=== PATIENT | female | born 1935 | race Caucasian/White ===

== ENCOUNTER → 2016-07-29 | Outpatient (CLI) | payer MEDICARE | LOC: GMAL 10:32 | PROVIDERS: ATTEND Family Medicine | DX: D51.3 Other dietary vitamin B12 deficiency anemia (principal); E55.9 Vitamin D deficiency, unspecified ==

== ENCOUNTER → 2016-09-15 | Outpatient (CLI) | payer MEDICARE ==
--- NOTE | 2016-09-15 14:17 | MAM ---
History: Well woman exam. Date of exam: 09/15/2016 Services provided: Bilateral full field digital screening mammography. CAD, the images were reviewed with R2 computer aided detection. FINDINGS: Glandular tissue is scattered glandular contour. Comparison with 2014 exam. Glandular distribution is stable and unchanged. No dominant mass, architectural distortion or clustered microcalcification. IMPRESSION: Benign exam Recommendation: Routine annual mammography BIRAD CATEGORY: 2 BENIGN Electronically signed by: Tiana Stallings MD 09/15/2016 2:17 PM CDT Workstation: [id number]
--- NOTE | 2016-09-17 09:21 | MRI ---
MRI right knee without contrast INDICATION: Chronic knee pain osteoarthrosis pain radiating down the leg x1 week unable to weight-bear TECHNIQUE: Noncontrast MR imaging right knee standard protocol FINDINGS: Moderate joint effusion. Advanced patellofemoral chondrosis and developing osteoarthrosis with multifocal fairly diffuse grade 4 chondrosis medial greater than lateral patellofemoral compartments with subchondral cysts and edema. Focal grade 4 chondrosis region noted in the lateral patellar facet approximately 5 mm wide. Diffuse involvement in the medial patellofemoral compartment with joint line osteophytes and joint space narrowing. There is also severe [id number] osteoarthrosis in the medial tibiofemoral compartment with subchondral cysts edema and diffuse grade 4 chondrosis. There is a degenerative macerated tear of the medial meniscus especially posterior horn. Cruciate ligaments appear intact. Extensor tendons are intact. There is a small fragmented osteophyte or body along the lower pole patella as well. Mild degenerative signal lateral meniscus. There is bowing of the MCL but no disruption with extrusion of the medial meniscus related to the arthrosis. IMPRESSION: Severe osteoarthrosis right knee medial tibiofemoral compartment and patellofemoral joint Degenerative diffuse medial meniscal tear with extrusion No acute fracture Electronically signed by: Blake Esparza MD 09/17/2016 9:20 AM CDT
== END ==
LOC: MRI 08:39
PROVIDERS: ATTEND Family Medicine
DX: Z12.31 Encounter for screening mammogram for malignant neoplasm of breast (principal); M17.11 Unilateral primary osteoarthritis, right knee; M25.561 Pain in right knee
CPT/HCPCS: 73721; G0202

== ENCOUNTER → 2016-09-20 | Outpatient (CLI) | payer MEDICARE ==
--- NOTE | 2016-09-20 08:43 | RAD ---
EXAM DESCRIPTION: Pelvis right knee examination 4 views CLINICAL HISTORY: 81 years Female, HIP PAIN COMPARISON: None. FINDINGS: A single view of the pelvis demonstrates mild degenerative lipping at the acetabular margins with hypertrophic changes overlying each greater trochanter. No fracture or dislocation is evident. Bony pelvic ring is intact. Modest degenerative changes at the lumbosacral junction are noted. Also included in this examination are 4 views of the right knee with marked degenerative changes and joint narrowing in the medial compartment and to a lesser extent patellofemoral articulation. No significant joint effusion is seen. IMPRESSION: 1. Mild degenerative changes of the hips without acute abnormality. 2. Advanced degenerative changes right knee, medial compartment. Electronically signed by: Maykel Pereira MD 09/20/2016 8:42 AM CDT
--- NOTE | 2016-09-21 10:48 | RAD ---
EXAM DESCRIPTION: Knee,Right Complete CLINICAL HISTORY: 81 years, Female, RIGHT KNEE PAIN COMPARISON: MRI September 15 FINDINGS: No acute fracture or dislocation. Some linear density about 12 x 1.5 mm overlying the central aspect of the joint space on the frontal projection are probably chronic small loose bodies. These are not clearly seen on the lateral view. Mild patellofemoral joint space narrowing and spurring. IMPRESSION: No acute fracture or dislocation. Moderate arthritic and degenerative changes Electronically signed by: Remi Leo MD 09/21/2016 10:47 AM CDT
== END ==
LOC: RAD 07:52
PROVIDERS: ATTEND Orthopaedic Surgery
DX: M25.561 Pain in right knee (principal); M25.551 Pain in right hip; M12.861 Other specific arthropathies, not elsewhere classified, right knee

== ENCOUNTER → 2016-12-28 | Outpatient (CLI) | payer MEDICARE | END | disposition home or self-care (01) | LOC: GMAL 10:39 | PROVIDERS: ATTEND Family Medicine | DX: E03.9 Hypothyroidism, unspecified (principal) ==

== ENCOUNTER 2017-01-10 07:00 | Day surgery (SDC) | payer MEDICARE ==
[~2017-01-10 07:00] MED LIST: LIDOCAINE 1% MPF 5 ML VIAL ONE; TROP 1%/CYCLOPEN 1%/PHENYL 2% DROPS ONE
[2017-01-10] MEDS ORDERED: MIDAZOLAM INJ 2 MG/2 ML VIAL ONE (07:19)
[2017-01-10] MEDS: PROPARACAINE 0.5% OPHTH SOL 15 ML BTTL ONE ×2 (07:34→08:53)
[2017-01-10] MEDS ORDERED: TOBRAMYCIN-DEXAMETH OPHTH SOL 1 DROP RIGHT_EYE ONE (07:50)
[2017-01-10] MEDS ORDERED: PROPARACAINE 0.5% OPHTH SOL 15 ML BTTL RIGHT_EYE ONE (08:47)
[2017-01-10] MEDS ORDERED: DEXAMETHASONE 0.1% OPHTH SOL 1 DROP RIGHT_EYE ONE (09:11)
[2017-01-10] MEDS ORDERED: BRIMONIDINE 0.2% OPHTH DROPS RIGHT_EYE ONE (09:11)
[2017-01-10] MEDS ORDERED: TOBRAMYCIN SULF 0.3 % OPHT SOL 1 DROP RIGHT_EYE ONE (09:11)
[2017-01-10 09:30] VITALS: BP 139/84; TEMP 97.5; O2SAT 97
== END 2017-01-10 09:55 | disposition home or self-care (01) ==
LOC: AMB 07:00
PROVIDERS: ATTEND Ophthalmology
DX: H25.11 Age-related nuclear cataract, right eye (principal); I10 Essential (primary) hypertension; K21.9 Gastro-esophageal reflux disease without esophagitis; Z88.2 Allergy status to sulfonamides; Z79.899 Other long term (current) drug therapy
CPT/HCPCS: 66984; J2250

== ENCOUNTER 2017-01-20 10:00 | Day surgery (SDC) | payer MEDICARE ==
[2017-01-20] MEDS ORDERED: MIDAZOLAM INJ 2 MG/2 ML VIAL ONE (11:18)
[2017-01-20] MEDS ORDERED: PROPARACAINE 0.5% OPHTH SOL 15 ML BTTL LEFT_EYE ONE ×3 (12:25→13:22)
[2017-01-20] MEDS ORDERED: TOBRAMYCIN SULF 0.3 % OPHT SOL 1 DROP LEFT_EYE ONE ×3 (12:25→13:30)
[2017-01-20] MEDS ORDERED: TROP 1%/CYCLOPEN 1%/PHENYL 2% DROPS OPHTH ONE (12:25)
[2017-01-20] MEDS ORDERED: LIDOCAINE 1% PF 2 ML AMP INJ ONE (13:22)
[2017-01-20] MEDS ORDERED: BRIMONIDINE 0.2% OPHTH DROPS LEFT_EYE ONE ×2 (13:23→13:30)
[2017-01-20] MEDS ORDERED: DEXAMETHASONE 0.1% OPHTH SOL 1 DROP LEFT_EYE ONE ×2 (13:23→13:30)
[2017-01-20 14:16] VITALS: BP 134/89; TEMP 96.7; O2SAT 99
== END 2017-01-20 14:15 | disposition home or self-care (01) ==
LOC: AMB 10:00
PROVIDERS: ATTEND Ophthalmology
DX: H25.12 Age-related nuclear cataract, left eye (principal); E78.00 Pure hypercholesterolemia, unspecified; I10 Essential (primary) hypertension; K21.9 Gastro-esophageal reflux disease without esophagitis; Z88.2 Allergy status to sulfonamides; Z79.899 Other long term (current) drug therapy
CPT/HCPCS: 66984; J2250

== ENCOUNTER 2017-07-29 21:02 | Emergency (ER) | payer MEDICARE ==
[2017-07-29] MEDS ORDERED: CHLORHEXIDINE GLUCONATE 4 % 15 ML UD TOP ONE (21:08)
[2017-07-29] MEDS ORDERED: TETANUS,DIPHTHERIA,PERTUSSIS 1 EA SYG IM ONE (21:29)
--- NOTE | 2017-07-29 21:36 | ED.PDOC ---
History of Present Illness - General Chief Complaint: General Stated Complaint: laceration righ thigh/syncope Time Seen by Provider: 07/29/17 21:31 Source: family - daughter Exam Limitations: no limitations - History of Present Illness Initial Comments: Laura Gu 82 y/o female brought by daughter after sitting on a scissor on her recliner with skin laceration on her thigh and went to the bathroom to take a look at the wound but on her way out from the bathroom while son was assisting her she got into cold sweats and was seated on the recliner also was noted to have passed out for few seconds which was noted by her son after changing clothes to bit mom to hospital.No chest pains ,no weakness,no dysarthria ,no incontinence of urine or stool.Stated feels better . Timing/Prior Episodes: single episode today Precipitating Factors: none, other - see hpi Episode Description: see hpi Loss of Consciousness: brief (seconds) Current Symptoms: back to normal Allergies/Adverse Reactions: Allergies Mercury Allergy (Unknown, Verified 07/29/17 21:12) Sulfa Antibiotics Allergy (Unknown, Verified 07/29/17 21:12) Home Medications: Ambulatory Orders Diclofenac Sodium [Voltaren] 75 mg PO DAILY 01/20/17 Escitalopram [Lexapro] 5 mg PO DAILY 01/20/17 Furosemide [Lasix] 20 mg PO DAILY 01/20/17 Levothyroxine Sodium [Levoxyl] 25 mcg PO DAILY 01/20/17 Losartan Potassium [Cozaar] 50 mg PO DAILY 01/20/17 Meprobamate 400 mg PO DAILY 01/20/17 Omeprazole 20 mg PO DAILY 01/20/17 Potassium 75 mg PO DAILY 01/20/17 Pravastatin Sodium [Pravachol] 20 mg PO ONCE 01/20/17 Review of Systems - Review of Systems Constitutional: States: no symptoms reported EENTM: States: no symptoms reported Respiratory: States: no symptoms reported Cardiology: States: no symptoms reported Gastrointestinal/Abdominal: States: no symptoms reported Genitourinary: States: no symptoms reported Skin: States: see HPI Neurological: States: see HPI All other Systems: Reviewed and Negative, No Change from Baseline Past Medical History (General) - Patient Medical History Hx Congestive Heart Failure: No Hx Hypertension: Yes Hx Diabetes: No Hx Cancer: No Hx Hepatitis C: No Hx MRSA: No Surgical History: appendectomy, cholecystectomy, tonsillectomy, other - hysterectomy - Vaccination History Hx Tetanus, Diphtheria Vaccination: No - Pt unsure of when last vaccination was Hx Influenza Vaccination: Yes Hx Pneumococcal Vaccination: No Immunizations Up to Date: No - Social History Hx Tobacco Use: No Hx Alcohol Use: No Hx Substance Use: No Hx Substance Use Treatment: No Hx Depression: No Feels Threatened In Home Enviroment: No Feels Threatened In a Relationship: No Hx Physical Abuse: No Hx Emotional Abuse: No Hx Suspected Abuse: No - Activities of Daily Living Hospice Agency (if applicable):: None Grooming Ability: Independent Eating (Feeding) Ability: Independent Toileting Ability: Independent - Female History Patient is a Female of Child Bearing Age (10 -59 yrs old): No - Triage Comment ED Triage Comment: Pt states that she sat on a pair of scissors and lost consciousness for a brief amount of time afterward. Physical Exam - Physical Exam General Appearance: Alert, Comfortable, No apparent distress, Other - speech fluent Eyes, Ears, Nose, Throat Exam: PERRL/EOMI, normal ENT inspection, pharynx normal Neck: non-tender, full range of motion, supple, other - no carotid bruits bilaterally Cardiovascular/Respiratory: regular rate, rhythm, no M/R/G, normal peripheral pulses, no JVD, normal breath sounds, no respiratory distress Gastrointestinal/Abdominal: normal bowel sounds, non tender, soft, no organomegaly Back Exam: no CVA tenderness, no vertebral tenderness Extremity: no pedal edema, no calf tenderness 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, 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 Exam: normal hearing, normal speech, PERRL Coordination/Gait: normal gait, negative Romberg's sign Motor/Sensory: no motor deficit, no sensory deficit, no pronator drift Skin Exam: normal color, warm/dry, other - 2 cm laceration right thigh Progress - Progress Progress: 07/29/17 21:56 Vital Signs - 8 hr 07/29/17 07/29/17 07/29/17 21:12 21:25 21:30 Pulse Rate [ 53 L 55 L 55 L Monitor] Respiratory 18 18 18 Rate Blood Pressure 124/49 107/52 [Right Arm] O2 Sat by Pulse 95 96 Oximetry 07/29/17 21:35 Pulse Rate [ 62 Monitor] Respiratory 18 Rate Blood Pressure 122/62 [Right Arm] O2 Sat by Pulse 96 Oximetry - EKG/XRAY/CT CT Ordered: No Procedures - Laceration/Wound Repair Right Thigh Wound Length (cm): 2 - skin Wound's Depth, Shape: superficial, irregular Wound Explored: clean Betadine Prep?: No - hibiclens Wound Repaired With: steri-strips Layer Closure?: No Sterile Dressing Applied?: Yes Departure - Departure Clinical Impression: Near syncope Laceration of thigh, right Qualifiers: Encounter type: initial encounter Qualified Code(s): S71.111A - Laceration without foreign body, right thigh, initial encounter Time of Disposition: 22:42 Disposition: Discharge to Home or Self Care Condition: Good Departure Forms: ED Discharge - Pt. Copy, Patient Portal Self Enrollment Instructions: Fainting, DI for Syncope in Adults (Fainting), How to Care for a Laceration After Repair, DI for Laceration Repair Steri-Strips Referrals: Lisandro Powell III, MD [Primary Care Provider] - 1-2 Weeks Home Medications: Ambulatory Orders Diclofenac Sodium [Voltaren] 75 mg PO DAILY 01/20/17 Escitalopram [Lexapro] 5 mg PO DAILY 01/20/17 Furosemide [Lasix] 20 mg PO DAILY 01/20/17 Levothyroxine Sodium [Levoxyl] 25 mcg PO DAILY 01/20/17 Losartan Potassium [Cozaar] 50 mg PO DAILY 01/20/17 Meprobamate 400 mg PO DAILY 01/20/17 Omeprazole 20 mg PO DAILY 01/20/17 Potassium 75 mg PO DAILY 01/20/17 Pravastatin Sodium [Pravachol] 20 mg PO ONCE 01/20/17 Additional Instructions: Return to emergency room as needed;Continue with home meds;Follow up with primary Md 01 August 2017;Removal of steri strips 08 Aug 2017 JR
[2017-07-29 22:59] VITALS: BP 107/45; O2SAT 97
== END 2017-07-29 22:55 | disposition home or self-care (01) ==
LOC: ER 21:02
DX: S71.111A Laceration without foreign body, right thigh, initial encounter (principal); I10 Essential (primary) hypertension; Z23 Encounter for immunization; W27.2XXA Contact with scissors, initial encounter; Y92.009 Unspecified place in unspecified non-institutional (private) residence as the place of occurrence of the external cause

== ENCOUNTER → 2017-09-19 | Outpatient (CLI) | payer MEDICARE ==
--- NOTE | 2017-09-20 15:27 | MAM ---
EXAM DESCRIPTION: 3D Screening BILATERAL : Digital Mammography. CLINICAL HISTORY: 82 years Female SCREENING . No complaints. No family history breast cancer. Childbirth. Postmenopausal. Taking HRT 5 or more years ago. Prior left breast biopsy benign.. COMPARISON: 2-D digital screening bilateral study 09/15/2016.. Report from prior examination also reviewed. TECHNIQUE: Bilateral CC and MLO projection full-field images, 3-D tomosynthesis digital mammographic technique. CAD not utilized. FINDINGS: The breast parenchymal density pattern is: Scattered areas of fibroglandular density. No skin thickening or nipple retraction. Left breast axillary lymph nodes. Bilateral solitary microcalcifications. Bilateral vascular calcifications. No focal, stellate mass or density, focal asymmetry , and no suspicious microcalcifications bilaterally. Stable mammograms compared to prior study, taking into account differences in mammographic technique IMPRESSION: BI-RADS CATEGORY: 2 - BENIGN FINDINGS. FOLLOW UP: Routine digital bilateral screening, one year interval from September 2017. Written communication explaining the IMPRESSION and follow-up, will be mailed to the patient and referring health care provider. According to the [employer], yearly mammograms are recommended starting at age 40 and continuing as long as a woman is in good health. Any breast change noted on a breast self-exam should be reported promptly to the patient's healthcare provider. Breast MRI is recommended for women with an approximately 20-25% or greater lifetime risk of breast cancer, including women with a strong family history of breast or ovarian cancer and women who have been treated for Hodgkin's disease. A negative mammographic report should not delay tissue diagnosis in patients with significant clinical history or physical findings. Extremely dense breast tissue limits the sensitivity of digital mammography. Electronically signed by: Serge Abarca MD 09/20/2017 3:25 PM CDT
== END ==
LOC: RAD 10:40
PROVIDERS: ATTEND Family Medicine
DX: Z12.31 Encounter for screening mammogram for malignant neoplasm of breast (principal)

== ENCOUNTER → 2017-12-12 | Outpatient (CLI) | payer MEDICARE ==
--- NOTE | 2017-12-12 08:28 | RAD ---
EXAM DESCRIPTION: Knee,Right Complete CLINICAL HISTORY: 82-year-old female KNEE PAIN COMPARISON: Radiographs of the pelvis on the same visit. TECHNIQUE: AP, lateral and patellar sunrise right knee. FINDINGS: Severe narrowing of the medial compartment almost [id number]. Marginal spurs and subchondral sclerosis and radiolucencies. Tibial spine spurs. No definite fracture. Marginal spurs superior and inferior patella. Marked narrowing of the medial patellofemoral joint with lateral marginal spurs. Mild suprapatellar effusion. No fracture. No abnormal radiodense objects in the soft tissues or joint spaces. IMPRESSION: Bicompartmental osteoarthritis involving the medial compartment and the patellofemoral compartment more medial than lateral. No acute bony or joint margin abnormality. Electronically signed by: Serge Abarca MD 12/12/2017 8:27 AM CDT
--- NOTE | 2017-12-12 08:31 | RAD ---
EXAM DESCRIPTION: Pelvis CLINICAL HISTORY: HIP PAIN COMPARISON: None Available. TECHNIQUE: AP view only. FINDINGS: No fracture dislocation. Bone density minimally decreased. Minimal narrowing of the bilateral hip joints but symmetric. Marginal spurs. Marginal spurs on the evening symphysis. Enthesophytes on the bilateral greater trochanters. Probable spondylosis L5-S1. No abnormal radiodense objects in the soft tissues or joint spaces. IMPRESSION: No acute bony or joint margin abnormality. Mild bilateral symmetric narrowing of the superior hip joints. Enthesophytes. Electronically signed by: Serge Abarca MD 12/12/2017 8:30 AM CDT
== END ==
LOC: RAD 09:50
PROVIDERS: ATTEND Orthopaedic Surgery
DX: Z01.818 Encounter for other preprocedural examination (principal); M17.11 Unilateral primary osteoarthritis, right knee; M25.561 Pain in right knee; M25.551 Pain in right hip

== ENCOUNTER → 2017-12-26 | Outpatient (CLI) | payer MEDICARE | LOC: GMAL 16:54 | PROVIDERS: ATTEND Family Medicine | DX: R30.0 Dysuria (principal) ==

== ENCOUNTER → 2018-01-05 | Outpatient (CLI) | payer MEDICARE | LOC: LAB.O 15:47 | PROVIDERS: ATTEND Family Medicine | DX: N39.0 Urinary tract infection, site not specified (principal) ==

== ENCOUNTER 2018-01-10 05:45 | Inpatient (IN) | payer MEDICARE ==
--- NOTE | 2018-01-09 08:49 | HP ---
CHIEF COMPLAINT: Right knee pain. HISTORY OF PRESENT ILLNESS: Ms. Gu is an 82-year-old female with a history of pain in the right knee. She has had multiple injections and has had failure of conservative measures. Because of that, she has requested operative intervention. After discussing the risks, benefits and alternatives to that, the patient has given informed consent for total knee arthroplasty. PAST SURGICAL HISTORY: 1. Appendectomy. 2. Hysterectomy. 3. Tonsillectomy. 4. Cholecystectomy. 5. Total knee arthroplasty. 6. Oral surgery. MEDICATIONS: 1. Levoxyl. 2. Omeprazole. 3. Diclofenac. 4. Potassium. 5. Furosemide. 6. Losartan. 7. Pravastatin. ALLERGIES: NO KNOWN DRUG ALLERGIES. CODE STATUS: Full code. IMMUNIZATIONS: Up to date. FAMILY HISTORY: None pertinent to today's complaint. SOCIAL HISTORY: The patient does not drink, smoke or use any illicit drugs. REVIEW OF SYSTEMS: Negative except as indicated in the History of Present Illness. PHYSICAL EXAMINATION: VITAL SIGNS: Blood pressure 130/76. Pulse 73. Height 5'2". Weight 135 pounds. MENTAL STATUS: The patient is awake, alert, and is able to give a good history and participate in the physical. The patient is oriented to person, place and time. SKIN: Normal tone and turgor. HEENT: Normocephalic, atraumatic. Pupils equal, round and reactive. Mucosal membranes are moist. NECK: Normal range of motion. No thyromegaly, no lymphadenopathy. CHEST: Normal respiratory excursion. CARDIAC: Regular rate and rhythm. No murmurs, rubs or gallops. MUSCULOSKELETAL: She has full range of motion of both upper extremities without pain. She has intact sensation. They are warm and well perfused. Strength is 5/5. She has no deformity or crepitus. The left lower extremity shows full range of motion in the hip. The knee has full extension and flexion to about 115 to 120 degrees. Sensation is intact. It is warm and well perfused. Strength is 5/5. The right lower extremity shows full range of motion of the hip. Knee of the knee is from full extension to flexion of about 120 degrees. She has no varus/valgus or anterior/posterior laxity, but does have varus deformity. Strength is 5/5. She has a moderate effusion. IMAGING: X-rays shows severe arthritis. ASSESSMENT: 1. Osteoarthritis. PLAN: The plan at this point is for total knee arthroplasty. We have discussed the risks, benefits, and alternatives to that and the patient has given informed consent. [facility][id number] [facility]
[2018-01-10] MEDS ORDERED: SODIUM CHL 0.9% 100ML MINI-BAG 100 ML IVPB ONE (05:55)
[2018-01-10] MEDS ORDERED: LACTATED RINGERS 1,000 ML ONE ×2 (05:55→10:35)
[2018-01-10] MEDS ORDERED: VANCOMYCIN HCL INJ 1,000 MG VIAL IVPB ONE ×3 (05:56→19:28)
[2018-01-10] MEDS ORDERED: ceFAZolin SODIUM 1 GM VIAL ONE ×2 (05:56→06:23)
[2018-01-10] MEDS ORDERED: TRANEXAMIC ACID 1,000 MG/10 ML VIAL ONE ×2 (05:59)
[2018-01-10] MEDS ORDERED: SODIUM CHLORIDE 0.9% 250ML 250 ML ONE ×3 (05:59→19:27)
[2018-01-10] MEDS ORDERED: SODIUM CHLORIDE 0.9% 100ML 100 ML IVPB ONE (06:06)
[2018-01-10] MEDS ORDERED: MORPHINE SULF *EPIDURAL* 1 MG/ML VIAL ONE (06:28)
[2018-01-10] MEDS ORDERED: MIDAZOLAM INJ 2 MG/2 ML VIAL ONE (06:28)
[2018-01-10] MEDS ORDERED: ACETAMINOPHEN IV 1000MG 100 ML ONE (06:28)
[2018-01-10] MEDS ORDERED: fentaNYL CITRATE INJ 50 MCG/ML AMP ONE (06:29)
[2018-01-10] MEDS ORDERED: TRANEXAMIC ACID INJ 1,000 MG in SODIUM CHLORIDE 0.9% 100ML 100 ML IVPB ONE (07:05)
[2018-01-10] MEDS ORDERED: ZOLPIDEM TARTRATE 5 MG TAB PO PRN (07:05)
[2018-01-10] MEDS ORDERED: MORPHINE SULFATE INJ 10 MG/ML VIAL IM PRN (07:05)
[2018-01-10] MEDS ORDERED: PROMETHAZINE HCL INJ 12.5 MG in SODIUM CHLORIDE 0.9% 50ML 50 ML IVPB PRN (07:05)
[2018-01-10] MEDS ORDERED: PROMETHAZINE HCL INJ 25 MG in SODIUM CHLORIDE 0.9% 50ML 50 ML IVPB PRN (07:05)
[2018-01-10] MEDS ORDERED: ACETAMINOPHEN 325 MG TAB PO PRN (07:05)
[2018-01-10] MEDS ORDERED: DEX 5% W/NACL 0.45% 1000ML 1,000 ML IVS PRN (07:05)
[2018-01-10] MEDS ORDERED: ONDANSETRON INJ 4 MG/2 ML VIAL IV PRN (07:05)
[2018-01-10] MEDS ORDERED: MORPHINE SULFATE INJ 10 MG/ML VIAL IV PRN (07:05)
[2018-01-10] MEDS ORDERED: ACETAMINOPHEN 500 MG TAB PO PRN (07:05)
[2018-01-10] MEDS ORDERED: NALOXONE HCL INJ 0.4 MG/ML VIAL IV PRN (07:05)
[2018-01-10] MEDS ORDERED: BISACODYL SUPPOSITORY 10 MG PR PRN (07:05)
[2018-01-10] MEDS ORDERED: CYCLOBENZAPRINE HCL 10 MG TAB PO PRN (07:05)
[2018-01-10] MEDS ORDERED: BENZOCAINE-MENTH LOZ (CEPACOL) 1 EA LOZ MT PRN (07:05)
[2018-01-10] MEDS ORDERED: SODIUM CHLORIDE 0.9% (FLUSH) 10 ML SYG IV PRN (07:05)
[2018-01-10] MEDS ORDERED: TEMAZEPAM 15 MG CAP PO PRN (07:05)
[2018-01-10] MEDS ORDERED: traMADol HCL 50 MG TAB PO PRN (07:05)
[2018-01-10] MEDS ORDERED: ALUMINUM & MAGNESIUM HYDROXIDE 30 ML UD PO PRN (07:05)
[2018-01-10] MEDS ORDERED: MORPHINE PCA 1 MG/ML 100 ML BAG IVPB SCH (07:30)
[2018-01-10] MEDS: ceFAZolin SODIUM 1 GM VIAL ONE ×2 (07:50→08:59)
[2018-01-10] MEDS: VANCOMYCIN HCL INJ 1,000 MG VIAL IVPB ONE ×2 (07:51→08:59)
[2018-01-10] MEDS: BUPIVACAINE LIPOSOME 13.3 MG/ML VIAL INJ ONE ×2 (07:51→09:03)
[2018-01-10] MEDS: BUPIVACAINE 0.5% 30 ML VIAL INJ ONE ×2 (07:51→09:03)
[2018-01-10] MEDS ORDERED: BUPIVACAINE LIPOSOME 13.3 MG/ML VIAL INJ ONE (08:44)
[2018-01-10] MEDS ORDERED: LACTATED RINGERS 1,000 ML BAG IV ONE (10:35)
[2018-01-10] MEDS: MAGNESIUM OXIDE 400 MG TAB PO SCH (12:46)
[2018-01-10] MEDS: CELECOXIB 100 MG CAP PO SCH ×2 (12:46→17:21)
[2018-01-10] MEDS ORDERED: ceFAZolin SODIUM 2 GRAMS PREMI 50 ML IVPB ONE ×2 (15:37→19:28)
[2018-01-10] MEDS: ceFAZolin SODIUM 2 GRAMS PREMI 2 GM in PREMIX BAG 1 BAG IVPB SCH (15:38)
[2018-01-10] MEDS: IV SET AND CAP CHANGE INJ INJ SCH (15:39)
[2018-01-10] MEDS: VANCOMYCIN HCL INJ 1,000 MG in SODIUM CHLORIDE 0.9% 250ML 250 ML IVPB SCH (17:29)
[2018-01-10] MEDS ORDERED: ENOXAPARIN SODIUM 30 MG/0.3 ML SYG SUBCU ONE (19:27)
[2018-01-10] MEDS ORDERED: GLUCAGON INJ 1 MG VIAL SUBCU PRN (20:39)
[2018-01-10] MEDS ORDERED: DEXTROSE 50% 25 GM/50 ML SYG IV PRN (20:39)
[2018-01-10] MEDS: INSULIN LISPRO 100 UNITS/ML PEN SUBCU SCH (21:19)
[2018-01-10] MEDS: DOCUSATE CALCIUM 240 MG CAP PO SCH ×2 (21:20→21:40)
[2018-01-10] MEDS: ENOXAPARIN SODIUM 30 MG/0.3 ML SYG SUBCU SCH (22:13)
--- NOTE | 2018-01-10 22:43 | CONS ---
DATE OF CONSULTATION: 01/10/18 SUPERVISING PHYSICIAN: Galindo Collier M.D. REASON FOR CONSULTATION: Total right knee arthroplasty. HISTORY OF PRESENT ILLNESS: Ms. Gu is an 82 year-old female patient that has a longstanding history of right knee pain. She has had multiple attempts at conservative measures of treatment in the outpatient setting, including injections and therapy but has failed to receive any significant amount of relief of her pain from conservative measures. Due to the fact that she has failed to receive any pain control and has limited her activities of daily living, she requested operative intervention. She was admitted today for elective total right knee arthroplasty. She was seen in the immediate postoperative state. She had no complications intraoperatively and was in stable condition at time of consultation. PAST MEDICAL HISTORY: 1. Hyperlipidemia. 2. Hypertension with a grade 1 diastolic dysfunction with last echocardiogram showing an ejection fraction of 65 in 07/2016. 3. Carotid stenosis on the left followed by annual sonography carotid studies. 4. Colonic polyps. 5. Gastroesophageal reflux disease. 6. Osteoarthritis. 7. Type 2 diabetes on diet therapy. 8. Hypothyroidism on supplementation. 9. Seasonal allergies. 10. Anxiety and depression. PAST SURGICAL HISTORY: 1. Appendectomy. 2. Cholecystectomy. 3. Hysterectomy and bilateral salpingo-oophorectomy. 4. Tonsillectomy and adenoidectomy. 5. Dental implants. 6. Benign left breast lumpectomy. 7. Right carpal tunnel release. 8. Left knee arthroscopy for debridement of medial patellofemoral degenerative arthritis. 9. Left knee arthroplasty in 2009. HOME MEDICATIONS: 1. Potassium 75 mg daily. 2. Omeprazole 20 mg daily. 3. Losartan 50 mg daily. 4. Levothyroxine 25 mcg daily. 5. Lasix 20 mg daily. 6. Voltaren 75 mg daily. ALLERGIES: SULFA ANTIBIOTIC, DYAZIDE, MERCURY, NYSTATIN, CRESTOR, SIMVASTATIN. FAMILY HISTORY: Father at age 90 secondary to melanoma and a cerebrovascular accident. Mother at age 84 due to complications from hypertension, congestive heart failure and rheumatoid arthritis. Maternal grandmother had congestive heart failure. 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 She is . Lives in [place]. She never smoked. She has never drank alcohol. Denies any illicit drug use. REVIEW OF SYSTEMS: CONSTITUTIONAL: Denies any fever or chills, aches, malaise. HEENT: Denies any headaches, sore throat, nasal congestion or ear aches. RESPIRATORY: Denies any shortness of breath, coughing, wheezing. CARDIOVASCULAR: Denies any chest pains, palpitations, syncopal episodes or peripheral edema. GASTROINTESTINAL: Denies any nausea, vomiting, diarrhea, constipation or abdominal pains. GENITOURINARY: Denies any dysuria, hematuria, polyuria or other urinary symptoms. MUSCULOSKELETAL: As noted in History of Present Illness. NEUROLOGIC: Denies any seizures, ataxia, headaches, migraines, syncopal episodes or other neurological deficits. PHYSICAL EXAMINATION: VITAL SIGNS: Temperature 97.5, pulse 67, blood pressure 165/85, respirations 16 , satting 92 to 96% on room air at rest. Admission weight was 68.5 kg. GENERAL: The patient is resting comfortably. Appears to be in no acute distress. She has an Iceman in place. Notes she has good pain control. HEENT: Tympanic membranes are clear bilaterally. Oropharynx was pink and moist without any lesions. NECK: Supple, non-tender. Full range of motion. No jugular venous distention. CHEST: Lungs are clear to auscultation bilaterally without any rhonchi, wheezing or rales. HEART: Regular rate and rhythm without appreciable murmurs, gallops, or rubs. ABDOMEN: Soft, non-tender with positive bowel sounds. EXTREMITIES: Right leg has a bulky dressing in place over the knee with Iceman in place. Distally pulses were 2+ bilaterally with capillary refill brisk. No reported neurologic or sensory deficits. NEUROLOGIC: Cranial nerves II-XII are grossly intact. Facial features were symmetrical. Extraocular movements are within normal limits. There is no notable nystagmus. She was alert and oriented times three. LABORATORY: Postoperative blood sugar was 130. Postoperative H&H is pending. No radiographic studies to review. ASSESSMENT: 1. Immediate postoperative day 0 for elective total right knee arthroplasty having failed to respond to outpatient treatment measures. Surgery performed by Dr. Cristobal Segura, orthopedic surgeon. 2. History of osteoarthritis affecting the knees. 3. Hypertension with last echocardiogram showing a grade 1 diastolic dysfunction with an ejection fraction of 65% on 07/29/16. 4. History of gastroesophageal reflux disease. 5. Diabetes mellitus type 2 on diet therapy only. 6. Hypothyroidism on supplementation. 7. Seasonal allergies. 8. Anxiety and depression. PLAN: Will follow the patient as she continues through her recovery phase and her physical therapy and rehabilitation efforts. Will work with utilization resources on discharge planning and make definitive discharge plans starting tomorrow. Will anticipate her length of stay to be at least 2 to 3 days. I will resume her home medications once those have been updated and verified as appropriate to her care. She is on DVT prophylaxis as per protocol. She will be on a clear liquid diet and then will have her on sliding scale a.c. and h.s. Until she has met her physical therapy goals will continue to monitor and treat appropriately. Will encourage deep breathing and bronchial exercises to prevent any complications postoperatively. Once discharged she will need close followup with Dr. Segura and her primary care provider, Dr. Powell. Until then, will continue to monitor and treat appropriately. #[id number] [facility]
[2018-01-11] MEDS: ceFAZolin SODIUM 2 GRAMS PREMI 2 GM in PREMIX BAG 1 BAG IVPB SCH ×2 (00:07→09:08)
[2018-01-11] MEDS: VANCOMYCIN HCL INJ 1,000 MG in SODIUM CHLORIDE 0.9% 250ML 250 ML IVPB SCH (05:36)
[2018-01-11] MEDS: INSULIN LISPRO 100 UNITS/ML PEN SUBCU SCH ×4 (07:41→20:59)
[2018-01-11] MEDS: HYDROcodone 5MG/APAP 325MG 1 EA TAB PO PRN ×2 (07:54→13:11)
[2018-01-11] MEDS: CELECOXIB 100 MG CAP PO SCH ×3 (07:54→16:59)
[2018-01-11] MEDS ORDERED: FUROSEMIDE 40 MG TAB ONE (08:30)
[2018-01-11] MEDS ORDERED: OMEPRAZOLE CAP 20 MG CAP ONE (08:30)
[2018-01-11] MEDS ORDERED: LEVOTHYROXINE SODIUM 0.075 MG TAB ONE (08:30)
--- NOTE | 2018-01-11 08:32 | OP ---
DATE OF PROCEDURE: 01/10/18 PREOPERATIVE DIAGNOSIS: 1. Right knee osteoarthritis. POSTOPERATIVE DIAGNOSIS: 1. Right knee osteoarthritis. PROCEDURE: 1. Right total knee arthroplasty. SURGEON: Cristobal Segura MD. LOG YARD DERRICK OPERATOR: Serge Arana CST, SA-C. ANESTHESIA: General anesthesia. COMPLICATIONS: None. FINDINGS: Severe arthritis. INDICATION: Ms. Gu has a long history of knee pain that has been refractory to conservative measures. Because of her ongoing pain and inability to function normally with conservative measures, she has requested operative intervention. After discussing the risks, benefits and alternatives to that, the patient has given informed consent for total knee arthroplasty. PROCEDURE: The patient was brought to the Operating Room and placed in supine position. General anesthesia was induced and the patient's leg was sterilely prepped and draped. Following prepping and draping, the distal femur was exposed and using an intramedullary guide, the distal femoral cut was made. The appropriate sized cutting block was measured, pinned into place, and the anterior, posterior, and chamfer cuts were made. The ACL was transected and the tibia was subluxed. Both the medial and lateral menisci were removed. An intramedullary guide was used to make the proximal tibial cut. The appropriate sized base plate was placed and a trial polyethylene was placed. The trial femur was placed, the knee was reduced, and the knee was taken through a range of motion. The knee was stable in anterior, posterior, varus and valgus stress. The patella tracked anatomically without evidence of subluxation or dislocation. After trialing, the trial components were removed and the bony surfaces were thoroughly irrigated with saline. Following irrigation, the surfaces were dried and the final components were cemented into place. The excess cement was removed and the remaining cement was allowed to cure. The knee was again taken through a range of motion to confirm stability. The wound was then irrigated with saline and closure was performed using PDS to approximate the arthrotomy followed by closure of the subcutaneous tissues with a combination of running and interrupted Monocryl sutures. Sterile dressing was placed. The patient was awoken from anesthesia and taken to Recovery. POSTOPERATIVE PLAN: The patient will be weight-bearing as tolerated on postoperative day 1. COMPONENTS: Done. Triathlon knee, size 2 femur, size 2 tibia, 9 mm insert. #[id number] [facility]
[2018-01-11] MEDS ORDERED: ceFAZolin SODIUM 2 GRAMS PREMI 50 ML IVPB ONE (08:46)
[2018-01-11] MEDS ORDERED: NON-FORMULARY MEDICATION 1 EA MIS (Furosemide [Lasix] 20 MG) PO SCH (09:00)
[2018-01-11] MEDS ORDERED: NON-FORMULARY MEDICATION 1 EA MIS (Omeprazole [Omeprazole] 20 MG) PO SCH (09:00)
[2018-01-11] MEDS: LOSARTAN POTASSIUM 100 MG TAB PO SCH (09:10)
[2018-01-11] MEDS: MAGNESIUM OXIDE 400 MG TAB PO SCH (09:10)
[2018-01-11] MEDS: POTASSIUM 75 MG PO SCH (09:14)
[2018-01-11] MEDS: LEVOTHYROXINE SODIUM 0.025 MG TAB PO SCH (09:15)
--- NOTE | 2018-01-11 09:37 | RAD ---
EXAM: Knee,Right 2 or More Views CLINICAL HISTORY: Right knee arthroplasty COMPARISON STUDY: December 12, 2017 TECHNICAL: AP and lateral images FINDINGS: The right knee has been replaced. The prosthesis is seated. There is no visible fracture. Typical postoperative changes are seen in soft tissues. IMPRESSION: Right knee arthroplasty is seated without evidence of a fracture. Electronically signed by: Piotr Romero MD 01/11/2018 9:36 AM CDT
[2018-01-11] MEDS: ENOXAPARIN SODIUM 30 MG/0.3 ML SYG SUBCU SCH ×2 (11:41→23:22)
[2018-01-11] MEDS: MAGNESIUM HYDROXIDE 30 ML UD PO PRN (13:12)
[2018-01-11] MEDS ORDERED: SODIUM CHLORIDE 0.45% 1000ML 1,000 ML IVS ONE (19:48)
[2018-01-11] MEDS ORDERED: SODIUM CHLORIDE 0.45% 1000ML 1,000 ML IVS PRN (19:52)
[2018-01-11] MEDS: DOCUSATE CALCIUM 240 MG CAP PO SCH (20:43)
--- NOTE | 2018-01-12 00:11 | PN ---
DATE: 01/11/18 SUPERVISING PHYSICIAN: Galindo Collier M.D. SUBJECTIVE: The patient has done well today with her first day of physical therapy. She has not had any complaints of nausea or vomiting. She remains afebrile. OBJECTIVE: VITAL SIGNS: temperature 98.2, pulse 70, blood pressure 130/65, respirations 16, satting 98% on room air. I's and O's show a positive balance of 250 with 690 in, 440 out. Weight is 68.5 kg. GENERAL: The patient is resting comfortably, alert. CHEST: Lungs are clear to auscultation. HEART: Regular rate and rhythm. ABDOMEN: Soft, non-tender. Positive bowel sounds. EXTREMITIES: Right knee has an Maury bandage in place. Distally pulses are strong. Capillary refill is brisk. NEUROLOGIC: She is alert and oriented times three. LABORATORY: Postoperative H&H shows hemoglobin 13.2, hematocrit 40.6. Chemistries show blood sugars between 100 and 176. ASSESSMENT: 1. Postoperative day 1 for elective total right knee arthroplasty having failed to respond to outpatient treatment measures. Surgery performed by Dr. Cristobal Segura. 2. History of osteoarthritis affecting both knees. 3. Hypertension with last echocardiogram showing a grade 1 diastolic dysfunction with an ejection fraction of 65% on 07/2016. 4. History of gastroesophageal reflux disease. 5. Diabetes mellitus type 2 on diet therapy only. 6. Hypothyroidism on supplementation. 7. Seasonal allergies. 8. Anxiety and depression. PLAN: Will follow the patient as she progresses through her physical therapy efforts. Will defer orthopedic, wound management and physical therapy to Dr. Segura and Physical Therapy Department. She is on DVT prophylaxis per protocol. Even though she is diet controlled and swears she is not diabetic, she is on a sliding scale. Until discharge, will continue to encourage deep breathing exercises with ultimate discharge planning still yet to be determined. [facility][id number] [facility]
[2018-01-12] MEDS: HYDROcodone 5MG/APAP 325MG 1 EA TAB PO PRN ×3 (06:15→20:59)
[2018-01-12] MEDS: INSULIN LISPRO 100 UNITS/ML PEN SUBCU SCH ×4 (07:36→21:00)
[2018-01-12] MEDS ORDERED: POTASSIUM CHLORIDE 8 MEQ TAB ONE (08:13)
--- NOTE | 2018-01-12 08:41 | PN ---
DATE: 01/12/18 SUBJECTIVE: Ms. Gu has no significant pain. OBJECTIVE: Afebrile. Vital signs stable. Wound is clean. There are no signs or symptoms of infection. ASSESSMENT: Status post total knee arthroplasty. PLAN: The plan is to continue with weightbearing as tolerated. [facility][id number] [facility]
--- NOTE | 2018-01-12 08:41 | PN ---
DATE: 01/11/18 SUBJECTIVE: Ms. Gu is doing well. She has no significant pain today. OBJECTIVE: Afebrile. Vital signs stable. Wound is clean. There are no signs or symptoms of infection. ASSESSMENT: Status post total knee arthroplasty. PLAN: The plan at this point is for her to begin weightbearing as tolerated. #[id number] [facility]
[2018-01-12] MEDS: FUROSEMIDE 40 MG TAB PO SCH (08:55)
[2018-01-12] MEDS: LEVOTHYROXINE SODIUM 0.025 MG TAB PO SCH (08:55)
[2018-01-12] MEDS: LOSARTAN POTASSIUM 100 MG TAB PO SCH (08:56)
[2018-01-12] MEDS: OMEPRAZOLE CAP 20 MG CAP PO SCH (08:56)
[2018-01-12] MEDS: MAGNESIUM OXIDE 400 MG TAB PO SCH (08:56)
[2018-01-12] MEDS: POTASSIUM 75 MG PO SCH (08:57)
[2018-01-12] MEDS: SODIUM CHLORIDE 0.9% (FLUSH) 10 ML SYG IV SCH ×2 (08:57→20:59)
[2018-01-12] MEDS: MAGNESIUM HYDROXIDE 30 ML UD PO PRN (08:57)
[2018-01-12] MEDS: ENOXAPARIN SODIUM 30 MG/0.3 ML SYG SUBCU SCH ×2 (11:26→22:33)
[2018-01-12] MEDS: DOCUSATE CALCIUM 240 MG CAP PO SCH (20:59)
[2018-01-13] MEDS ORDERED: POTASSIUM CHLORIDE 20 MEQ TAB ONE (03:25)
--- NOTE | 2018-01-13 08:29 | PN ---
SUPERVISING PHYSICIAN: Erica Collier MD DATE: 01/12/18 SUBJECTIVE: The patient is sitting on the side of her bed. She is eating her meal. She is visiting with her family. She has no complaints of nausea, vomiting, diarrhea, constipation, chest pain or shortness of breath. She has done well today with physical therapy and has no extreme problems with pain control. OBJECTIVE: VITAL SIGNS: Temperature 98.1. Heart rate 82. Blood pressure 120/74. Respiratory rate 18. O2 saturation 95% on room air. RESPIRATORY: Essentially clear to auscultation bilaterally. CARDIAC: Regular rate and rhythm. GASTROINTESTINAL: Abdomen is soft, nondistended, nontender. Bowel sounds are positive. EXTREMITIES: She has a dressing to her right knee that is dry and intact. Bilateral pedal pulses are palpable at +2. NEUROLOGIC: Awake, alert and oriented times three. LABORATORY: Blood sugars have run between 119 and 157. All other labs and films have been reviewed via the EMR. ASSESSMENT: 1. Postoperative day 2 for elective total right knee arthroplasty having failed to respond to outpatient treatment measures with surgery performed by Dr. Cristobal Segura, orthopedic surgeon. 2. History of osteoarthritis affecting both knees. 3. Hypertension with last echocardiogram showing a grade 1 diastolic dysfunction with an ejection fraction of 65% on 07/2016. 4. History of gastroesophageal reflux disease. 5. Diabetes mellitus, type 2, on diet therapy only. 6. Hypothyroidism on supplementation. 7. Seasonal allergies. 8. Anxiety and depression. PLAN: We will continue present supportive care. We will defer to Dr. Segura for orthopedic issues. She will continue with physical therapy for strengthening and conditioning. She will plan on discharge tomorrow or Tuesday with [facility] after discharge. Until then, we will continue to encourage good pulmonary hygiene until discharge. We will follow as needed. Dr. Collier is the collaborating physician and available for consultation. #[id number] [facility]
[2018-01-13] MEDS: OMEPRAZOLE CAP 20 MG CAP PO SCH (08:56)
[2018-01-13] MEDS: LEVOTHYROXINE SODIUM 0.025 MG TAB PO SCH (08:56)
[2018-01-13] MEDS: FUROSEMIDE 40 MG TAB PO SCH (08:56)
[2018-01-13] MEDS: MAGNESIUM OXIDE 400 MG TAB PO SCH (08:56)
[2018-01-13] MEDS: LOSARTAN POTASSIUM 100 MG TAB PO SCH (08:57)
[2018-01-13] MEDS: INSULIN LISPRO 100 UNITS/ML PEN SUBCU SCH ×4 (08:59→20:59)
[2018-01-13] MEDS: IV SET AND CAP CHANGE INJ INJ SCH (14:53)
[2018-01-13] MEDS: ENOXAPARIN SODIUM 30 MG/0.3 ML SYG SUBCU SCH ×2 (14:53→22:31)
[2018-01-13] MEDS: SODIUM CHLORIDE 0.9% (FLUSH) 10 ML SYG IV SCH ×2 (14:54→20:50)
[2018-01-13] MEDS: POTASSIUM 75 MG PO SCH (15:40)
--- NOTE | 2018-01-13 15:55 | PN ---
DATE: 01/13/18 SUPERVISING PHYSICIAN: Galindo Collier M.D. SUBJECTIVE: The patient is lying in bed asleep. She awakens easily. Feels that her physical therapy went well this morning. Denies any nausea, vomiting, diarrhea, constipation, chest pain or shortness of breath. OBJECTIVE: VITAL SIGNS: She is afebrile, heart rate 77, blood pressure 137/79, respiratory rate 18, O2 sat 98% on room air. RESPIRATORY: Essentially clear to auscultation bilaterally. CARDIAC: Regular rate and rhythm. GASTROINTESTINAL: Abdomen is soft, nondistended, non-tender. Bowel sounds are positive. EXTREMITIES: No cyanosis, clubbing or edema. The dressing to her right knee is dry and intact. There is minimal swelling and no erythema. Bilateral pedal pulses are palpable at +2. NEUROLOGIC: She is awake, alert and oriented times three. LABORATORY: There are no labs and films to report at this time. ASSESSMENT: 1. Postoperative day 3 for elective total right knee arthroplasty having failed to respond to outpatient treatment measures with surgery performed by Dr. Cristobal Segura, orthopedic surgeon. 2. History of osteoarthritis affecting both knees. 3. Hypertension with last echocardiogram showing a grade 1 diastolic dysfunction with an ejection fraction of 65% on 07/2016. 4. History of gastroesophageal reflux disease. 5. Diabetes mellitus, type 2, on diet therapy only. 6. Hypothyroidism on supplementation. 7. Seasonal allergies. 8. Anxiety and depression. PLAN: We will continue present supportive care. Orthopedic issues will be per Dr. Cristobal Segura, orthopedic surgeon. Physical therapy will continue for strengthening and conditioning. Will encourage good pulmonary hygiene. Will follow the patient closely. Plan for discharge tomorrow with [facility] and physical therapy after discharge. Dr. Collier is the collaborating physician available for consultation. #[id number] [facility]
[2018-01-13] MEDS: POTASSIUM CHLORIDE 8 MEQ TAB PO SCH (18:47)
[2018-01-13] MEDS: DOCUSATE CALCIUM 240 MG CAP PO SCH (20:50)
[2018-01-13] MEDS ORDERED: BISACODYL SUPPOSITORY 10 MG PR ONE (21:00)
[2018-01-13] MEDS ORDERED: MAGNESIUM HYDROXIDE 30 ML UD PO ONE (21:00)
[2018-01-14] MEDS: INSULIN LISPRO 100 UNITS/ML PEN SUBCU SCH ×2 (07:45→11:56)
[2018-01-14] MEDS: FUROSEMIDE 40 MG TAB PO SCH (08:25)
[2018-01-14] MEDS: MAGNESIUM OXIDE 400 MG TAB PO SCH (08:26)
[2018-01-14] MEDS: LOSARTAN POTASSIUM 100 MG TAB PO SCH (08:26)
[2018-01-14] MEDS: POTASSIUM CHLORIDE 8 MEQ TAB PO SCH (08:26)
[2018-01-14] MEDS: OMEPRAZOLE CAP 20 MG CAP PO SCH (08:27)
[2018-01-14] MEDS: SODIUM CHLORIDE 0.9% (FLUSH) 10 ML SYG IV SCH (08:27)
[2018-01-14] MEDS: LEVOTHYROXINE SODIUM 0.025 MG TAB PO SCH (08:27)
[2018-01-14 10:12] VITALS: TEMP 98.1
[2018-01-14] MEDS: ENOXAPARIN SODIUM 30 MG/0.3 ML SYG SUBCU SCH (10:21)
[2018-01-14 13:51] VITALS: BP 135/78; O2SAT 98
--- NOTE | 2018-01-14 17:31 | DS ---
SUPERVISING PHYSICIAN: Galindo Collier M.D. DISCHARGE DIAGNOSIS: 1. Postoperative day #4 for elective total right knee arthroplasty having failed to respond to outpatient treatment measures with surgery performed by Dr. Cristobal Segura, orthopedic surgeon. 2. History of osteoarthritis affecting both knees. 3. Hypertension with last echocardiogram showing a grade 1 diastolic dysfunction with an ejection fraction of 65% on 07/2016. 4. History of gastroesophageal reflux disease. 5. Diabetes mellitus, type 2, on diet therapy only. 6. Hypothyroidism on supplementation. 7. Seasonal allergies. 8. Anxiety and depression. HISTORY OF PRESENT ILLNESS: This is an 82 year-old female patient who had right total knee arthroplasty per Dr. Cristobal Segura on the date of admission. She had failed conservative measures to receive any pain control and her knee pain was limiting her daily activities, so she elected to have Dr. Cristobal Segura perform a right total knee arthroplasty. She came through her intraoperative period without any problems. Postoperatively she completed her rehabilitation with her physical therapy. She had minimal problems with pain relief. She has met all of her goals with physical therapy and at this time she will be discharged home in stable condition. HOSPITAL COURSE: Laboratory shows hemoglobin 13.2, hematocrit 40.6 the day after surgery. Vital signs have remained stable. She has remained afebrile. She will be discharged. DISCHARGE PLAN: The patient will be discharged home in stable condition. She is to followup with Dr. Segura within the next 1 to 2 weeks. She is to call his office for an appointment. She will have [facility] as well as their physical therapy. It is also recommended that she followup with Dr. Powell , her primary care physician, within the next 2 weeks. She is to hold off on her Mobic or any NSAIDs until after completion of her Xarelto therapy. In addition to her routine home medications, she is to have 8 additional days of Xarelto. I have also given her Cyclobenzaprine and some Tramadol for pain relief. She is to return to the hospital or call Dr. Segura's office for any problems or complications. DISCHARGE MEDICATIONS: 1. Omeprazole. 2. Losartan. 3. Levothyroxine. 4. Furosemide. 5. Diclofenac. 6. Red yeast rice extract. 7. Micro-K. 8. Cyclobenzaprine. 9. Xarelto. 10. Tramadol. [facility][id number] [facility]
--- NOTE | 2018-01-15 13:17 | PN ---
DATE: 01/14/18 SUBJECTIVE: Ms. Gu is doing really well. She is ambulating. She has pain that is well controlled with p.o. medicine. OBJECTIVE: She is afebrile. Vital signs are stable. Wound is clean. There are no signs or symptoms of infection. ASSESSMENT: 1. Status post total knee arthroplasty. PLAN: The plan at this point is for discharge. She seems to be doing well enough and she has home health care set up to begin on discharge day one. She will followup with us as scheduled. #[id number] [facility]
== END 2018-01-14 16:50 | disposition home health service (06) | DRG 470 ==
LOC: AMB 05:45 → MS 11:30
PROVIDERS: ADMIT Orthopaedic Surgery; ATTEND Nurse Practitioner Acute Care
PROC: 0SRC0J9 Replacement of Right Knee Joint with Synthetic Substitute, Cemented, Open Approach (ICD-10-PCS; principal; 2018-01-10 07:09)
DX: M17.0 Bilateral primary osteoarthritis of knee (principal); I50.32 Chronic diastolic (congestive) heart failure; I10 Essential (primary) hypertension; K21.9 Gastro-esophageal reflux disease without esophagitis; E11.9 Type 2 diabetes mellitus without complications; E03.9 Hypothyroidism, unspecified; F41.9 Anxiety disorder, unspecified; F32.9 Major depressive disorder, single episode, unspecified

== ENCOUNTER → 2018-07-17 | Outpatient (CLI) | payer MEDICARE ==
--- NOTE | 2018-07-17 16:44 | US ---
EXAM DESCRIPTION: Abdomen,Complete: Ultrasound. CLINICAL HISTORY: R10.2 COMPARISON: None Available. TECHNIQUE: Transabdominal scannin-dimensional and Doppler modes. FINDINGS: Gallbladder: Surgically removed. No fluid in the gallbladder fossa. Common bile duct: 4.3 mm normal caliber. Liver: Long axis right lobe 14.1 cm. Hepatopedal flow in the portal vein which is normal caliber. Normal caliber of the ducts. Normal echogenicity. Smooth capsule with no ascites.. Pancreas: Included segments with normal echogenicity, duct not seen.. Abdominal aorta: Normal caliber from the proximal segment to the distal bifurcation. IVC: visualized; normal caliber. Spleen normal echogenicity; long axis measurement is 10.1 cm. Right kidney: 8.9 cm long axis. Normal aging cortical thickness and echogenicity. No hydronephrosis, echogenic stones, or perirenal fluid. Left kidney: 8.3 cm Long axis. Normal aging cortical thickness and echogenicity. No hydronephrosis, echogenic stones, or perirenal fluid. IMPRESSION: Prior cholecystectomy with no ascites or duct dilation. Liver, pancreas, spleen, and kidneys are unremarkable. Normal caliber of the abdominal aorta and IVC. Electronically signed by: Serge Abarca MD 07/17/2018 4:41 PM CDT
== END ==
LOC: US 08:44
PROVIDERS: ATTEND Family Medicine
DX: R10.9 Unspecified abdominal pain (principal); R10.2 Pelvic and perineal pain; Z90.49 Acquired absence of other specified parts of digestive tract

== ENCOUNTER → 2018-07-24 | Outpatient (CLI) | payer MEDICARE ==
--- NOTE | 2018-07-24 10:59 | US ---
EXAM DESCRIPTION: Pelvic,Non-OB CLINICAL HISTORY: 83 years, Female, PELVIC PAIN COMPARISON: None. TECHNIQUE: Multiplanar grayscale sonographic images of the pelvis obtained transabdominally. FINDINGS: The uterus and both ovaries are surgically absent. Both adnexa appear grossly unremarkable. The urinary bladder is well distended and demonstrates bilateral ureteral jets. No free fluid in the pelvis or adnexa. IMPRESSION: 1. Uterus and both ovaries are surgically absent. 2. No free fluid in the pelvis. Electronically signed by: Lucas Rodriguez MD 07/24/2018 10:56 AM CDT
== END ==
LOC: RAD 09:33
PROVIDERS: ATTEND Family Medicine
DX: R10.2 Pelvic and perineal pain (principal); Z90.710 Acquired absence of both cervix and uterus; Z90.722 Acquired absence of ovaries, bilateral

== ENCOUNTER → 2018-09-25 | Outpatient (CLI) | payer MEDICARE ==
--- NOTE | 2018-09-25 20:28 | US ---
EXAM DESCRIPTION: Soft Tissue,Extremity: ULTRASOUND. CLINICAL HISTORY: 83 years Female SKIN NEOPLASM COMPARISON: None Available. TECHNIQUE: Transcutaneous scanning: Gamez-scale and Doppler modes. Scanning of the left medial thigh over palpable mass. FINDINGS: Isoechoic mass with fine echogenic capsule and somewhat inhomogeneous density internally. Dimensions are 3.3 x 2.6 x 1.3 cm with minimal vascularity abutting the capsule margins. Uniform echoes in the adjacent adipose tissue. No distinct cyst or large calcifications. No parenchymal edema or overlying skin changes. 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 Electronically signed by: Serge Abarca MD 09/25/2018 8:26 PM CDT
--- NOTE | 2018-09-27 16:04 | MAM ---
EXAM DESCRIPTION: 3D Screening BILATERAL : Digital Mammography. CLINICAL HISTORY: 83 years Female ANNUAL SCREENING . No complaints and no personal or family history of breast cancer. Childbirth. Postmenopausal. Hormone history unknown. Prior benign left breast biopsy.. Lifetime risk of developing breast cancer (Tyrer-Cuzick model)(%): 2.1. COMPARISON: Bilateral screening digital breast tomosynthesis 09/19/2017.. No prior reports available. TECHNIQUE: Bilateral CC and MLO projection full-field images, digital tomosynthesis mammographic technique. Bilateral digital 2-D full-field MLO images. CAD not available for tomosynthesis or 2-D images. FINDINGS: The breast parenchymal density pattern is: Scattered areas of fibroglandular density. No skin thickening or nipple retraction. Bilateral solitary microcalcifications. Left axillary lymph node. Vascular calcifications. No new focal, stellate mass or density, focal asymmetry , and no suspicious microcalcifications bilaterally. Stable mammograms compared to prior study. IMPRESSION: Benign exam. BIRAD CATEGORY: 2 BENIGN FINDINGS. RECOMMENDATIONS: FOLLOW UP: Routine digital bilateral mammographic screening, one year interval from September 2018. Written communication explaining the IMPRESSION and follow-up, will be mailed to the patient and referring health care provider. According to the [employer], yearly mammograms are recommended starting at age 40 and continuing as long as a woman is in good health. Any breast change noted on a breast self-exam should be reported promptly to the patient's healthcare provider. Breast MRI is recommended for women with an approximately 20-25% or greater lifetime risk of breast cancer, including women with a strong family history of breast or ovarian cancer and women who have been treated for Hodgkin's disease. A negative mammographic report should not delay tissue diagnosis in patients with significant clinical history or physical findings. Extremely dense breast tissue limits the sensitivity of digital mammography. Electronically signed by: Serge Abarca MD 09/27/2018 4:02 PM CDT
== END ==
LOC: US 09:45
PROVIDERS: ATTEND Family Medicine
DX: Z12.31 Encounter for screening mammogram for malignant neoplasm of breast (principal); D17.39 Benign lipomatous neoplasm of skin and subcutaneous tissue of other sites

== ENCOUNTER → 2019-06-12 | Outpatient (CLI) | payer MEDICARE | DX: J32.9 Chronic sinusitis, unspecified (principal); R90.82 White matter disease, unspecified; I65.29 Occlusion and stenosis of unspecified carotid artery ==

== ENCOUNTER → 2019-10-01 | Outpatient (CLI) | payer MEDICARE ==
--- NOTE | 2019-10-03 15:47 | MAM ---
EXAM DESCRIPTION: 3D Screening BILATERAL : Digital Mammography. CLINICAL HISTORY: 84 years Female ANNUAL SCREENING . No complaints. No personal or family history of breast cancer. Menarche age 13. Childbirth age 25. Menopause age 55. No HRT. Lifetime risk of developing breast cancer (Tyrer-Cuzick model)(%): Not calculated COMPARISON: prior. No prior reports available. TECHNIQUE: Bilateral CC and MLO projection full-field images, with [employer] digital tomosynthesis mammographic technique. Bilateral 2-D digital full-field images, MLO and CC projections, non-displaced. Bilateral digital 2-D full-field MLO images. and CC images. CAD available for 2-D images. FINDINGS: The breast parenchymal density pattern is: Scattered areas of fibroglandular density. No skin thickening or nipple retraction. Axillary Lymph nodes. Solitary microcalcifications. Skin mole markers. Vascular calcifications. No new focal, stellate mass or density, focal asymmetry , and no suspicious microcalcifications bilaterally. Stable mammograms compared to prior study. IMPRESSION: Benign exam. BIRAD CATEGORY: 2 BENIGN FINDINGS. RECOMMENDATIONS: FOLLOW UP: Routine digital bilateral mammographic screening, one year interval from September 2019. Written communication explaining the IMPRESSION and follow-up, will be mailed to the patient and referring health care provider. According to the [employer], yearly mammograms are recommended starting at age 40 and continuing as long as a woman is in good health. Any breast change noted on a breast self-exam should be reported promptly to the patient's healthcare provider. Breast MRI is recommended for women with an approximately 20-25% or greater lifetime risk of breast cancer, including women with a strong family history of breast or ovarian cancer and women who have been treated for Hodgkin's disease. A negative mammographic report should not delay tissue diagnosis in patients with significant clinical history or physical findings. Extremely dense breast tissue limits the sensitivity of digital mammography. Electronically signed by: Serge Abarca MD 10/03/2019 3:45 PM CDT
== END ==
LOC: MAMMO 08:21
PROVIDERS: ATTEND Family Medicine
DX: Z12.31 Encounter for screening mammogram for malignant neoplasm of breast (principal)

== ENCOUNTER → 2019-12-11 | Outpatient (CLI) | payer MEDICARE | LOC: GMAL 10:57 | PROVIDERS: ATTEND Family Medicine | DX: D51.3 Other dietary vitamin B12 deficiency anemia (principal); E55.9 Vitamin D deficiency, unspecified; I10 Essential (primary) hypertension; E11.9 Type 2 diabetes mellitus without complications; E78.49 Other hyperlipidemia ==

== ENCOUNTER → 2020-03-17 | Outpatient (CLI) | payer MEDICARE | LOC: GMAL 10:25 | PROVIDERS: ATTEND Family Medicine | DX: D50.8 Other iron deficiency anemias (principal); D51.8 Other vitamin B12 deficiency anemias; E03.9 Hypothyroidism, unspecified; I10 Essential (primary) hypertension; E11.9 Type 2 diabetes mellitus without complications ==